=== PATIENT | male | born 1970 | race Caucasian/White ===

== ENCOUNTER → 2019-12-17 13:42 | Outpatient (CLI) | payer OTHER ==
--- NOTE | ~2019-12-17 | ST ---
PATIENT:LUIS ALBERTO FERRARA MEDICAL RECORD: [id number] SEX: M LOCATION:[facility] ORDER #: ADMISSION DATE: 12/17/19 AGE OF PATIENT: 49 REFERRING PHYSICIAN: INTERPRETING PHYSICIAN: JORDAN TANNER MD DATE OF SERVICE: 12/17/2019 Baseline ECG is normal. Exercised for 10 minutes on Estevan protocol. Maximum heart rate 149 beats per minute, greater than 85% max predicted. No ECG changes of ischemia. No symptoms of ischemia. Normal blood pressure response to exercise. No arrhythmia is noted. Good exercise tolerance for age. TRANSINT:[id number] Voice Confirmation ID: [id number] DOCUMENT ID: [id number] JORDAN TANNER MD CC: [id number] DICTATION DATE: 12/18/19 1421 MARKING STITCHER: 12/19/19 0944 [facility] CLI 12/17/[address] [id number]
--- NOTE | 2019-12-19 09:27 | EC ---
PATIENT:LUIS ALBERTO FERRARA DATE OF SERVICE: 12/17/19 SEX: M MEDICAL RECORD: [id number] DATE OF : 74 LOCATION:[facility] AGE OF PATIENT: 49 ADMISSION DATE: 12/17/19 REFERRING PHYSICIAN: INTERPRETING PHYSICIAN: JORDAN TANNER MD ECHOCARDIOGRAM REPORT ECHO CHARGES 4 ECHO COMPLETE Date: 12/17/19 CLINICAL DIAGNOSIS: HEART MURMUR ECHOCARDIOGRAPHIC MEASUREMENTS (adult normal given) AC root (d.<3.7cm) 3.4 cm LV Septum d (<1.2 cm> 1.6 cm Valve Excursion 2.3 cm LV Septum (systole) 1.7 cm Left Atria (s.<4.0cm> 4.8 cm LVPW d(<1.2cm) 1.5 cm RV (d.<2.3cm) 4.4 cm LVPW (sytole) 1.7 cm LV diastole(<5.6CM) 4.8 cm MV E-F(>70mm/sec) cm LV systole 3.0 cm LVOT Diameter 2.1 cm MV exc.(>10mm) 1.6 cm Est.ejection fraction (50-75%) % DOPPLER: LVIT cm/sec A 74.0 cm/sec E 94.0 cm/sec LA cm/sec RVSP 29 mmHg LVOT 115 cm/sec AOP1/2T m/s Asc. Ao 135 cm/sec RVOT 63 cm/sec RA cm/sec PA 105 cm/sec AV Gradient Peak 7.30 mmHg AV Mean 3.80 mmHg AV Area 2.4 cm MV Gradient Peak 3.29 mmHg MV Mean 1.32 mmHg MV Area cm COMMENTS: Crm System Administrator: 2 DAYSI CAMARENA Director Marketing: 3 Dr. Motley TAPE# PACS Pericardial Effusion N DATE OF SERVICE: Adequate 2D, color flow imaging, spectral Doppler, and M-Mode. LVH is present. LV internal dimension is normal. Wall motion is normal. EF is greater than or equal to 55%. Aortic valve is tricuspid. No evidence of stenosis by Doppler interrogation. Left atrium is dilated at 4.8 cm. Mitral valve shows no prolapse. Trace MR. Right-sided chambers are grossly normal. Trace to mild TR. ECHOCARDIOGRAM REPORT [id number] LUIS ALBERTO FERRARA TRANSINT:[id number] Voice Confirmation ID: [id number] DOCUMENT ID: [id number] JORDAN TANNER MD at 0927 CC: [id number] DICTATION DATE: 12/18/19 1535 [place] AUDITOR: 12/18/19 2243 DEP CLI 12/17/19 [place] [id number] [place] [id number]
== END | disposition home or self-care (01) ==
LOC: D.HCCECHO 13:42
PROVIDERS: ATTEND Internal Medicine Interventional Cardiology
DX: R00.2 Palpitations (principal)